=== PATIENT | male | born 1990 | race American Indian/Alaskan Native ===

== ENCOUNTER 2017-03-26 04:21 | Emergency (ER) | payer SELFPAY ==
[2017-03-26 05:27] LABS: Basophils % (Auto) 0.5 % (0.0-1.8); Eosinophils % (Auto) 1.7 % (0.0-4.3); Hematocrit 45.7 % (35.5-45.6); Hemoglobin 15.5 gm/dl (11.8-15.2); Mean Corpuscular HGB Conc 34 % (32-34); Mean Corpuscular Hemoglobin 30 pg (28-32); Mean Corpuscular Volume 89 fl (84-94); Platelet Count 247 K/mm3 (140-440); Red Blood Count 5.12 M/mm3 (3.65-5.03); Red Cell Distribution Width 13.2 % (13.2-15.2); White Blood Count 15.8 K/mm3 (4.5-11.0)
[2017-03-26 05:49] LABS: Alanine Aminotransferase 24 units/L (7-56); Albumin 4.8 g/dL (3.9-5); Albumin/Globulin Ratio 1.7 %; Alkaline Phosphatase 52 units/L (35-129); Anion Gap 25 mmol/L; Blood Urea Nitrogen 15 mg/dL (9-20); Calcium 9.4 mg/dL (8.4-10.2); Carbon Dioxide 20 mmol/L (22-30); Chloride 98.6 mmol/L (98-107); Glucose 176 mg/dL (75-100); Lipase 11 units/L (13-60); Potassium 3.8 mmol/L (3.6-5.0); Sodium 140 mmol/L (137-145); Total Protein 7.7 g/dL (6.3-8.2)
[2017-03-26] MEDS ORDERED: SUBLIMAZE IV ONE (07:44)
[2017-03-26] MEDS ORDERED: ZOFRAN IV ONE (07:44)
[2017-03-26] MEDS ORDERED: TORADOL IV ONE (07:45)
[2017-03-26] MEDS ORDERED: NACL 0.9% 1000 ML 1,000 ML IV ONE (07:45)
--- NOTE | 2017-03-26 07:50 | Emergency Department Report ---
HPI - General Chief Complaint: Abdominal Pain Time Seen by Provider: 03/26/17 07:41 - HPI HPI: Room 6 The patient is a 27-year-old male presenting with a chief complaint of left flank pain. The patient states his pain began suddenly this morning with pain in the left flank and left lower quadrant. Patient describes pain as constant in nature. Patient does admit to nausea vomiting. Patient denies dysuria or hematuria. Location: Left flank Duration: Constant since this morning Quality: Pain Severity: 04/04 Modifying factors: [see above] Context: [see above] Mode of transportation: EMS ED Past Medical Hx - Past Medical History Previous Medical History?: No Additional medical history: CROHN'S - Surgical History Past Surgical History?: No - Family History Family history: no significant - Social History Smoking Status: Never Smoker Substance Use Type: None (denies illicit drug use) - Medications Home Medications: Home Medications Medication Instructions Recorded Confirmed Last Taken Type Metoclopramide [Reglan] 10 mg PO TID PRN #10 tab 05/20/16 Unknown Rx Famotidine [Pepcid] 20 mg PO BID #20 tablet 03/26/17 Unknown Rx Promethazine [Phenergan TAB] 25 mg PO Q6HR PRN #20 tab 03/26/17 Unknown Rx Promethazine [Phenergan] 25 mg [place] Q6HR PRN #5 supp.rect 03/26/17 Unknown Rx traMADol [Ultram] 50 mg PO Q6HR PRN #14 tablet 03/26/17 Unknown Rx ED Review of Systems ROS: Stated complaint: VOMITING Other details as noted in HPI Comment: All other systems reviewed and negative Constitutional: denies: chills, fever Eyes: denies: eye pain, eye discharge, vision change ENT: denies: ear pain, throat pain Respiratory: denies: cough, shortness of breath, wheezing Cardiovascular: denies: chest pain, palpitations Endocrine: no symptoms reported Gastrointestinal: abdominal pain, nausea, vomiting Genitourinary: denies: urgency, dysuria Musculoskeletal: back pain Skin: denies: rash, lesions Neurological: denies: headache, weakness, paresthesias Psychiatric: denies: anxiety, depression Hematological/Lymphatic: denies: easy bleeding, easy bruising Physical Exam - Physical Exam Vital Signs: Vital Signs 03/26/17 03/26/17 03/26/17 04:37 05:05 06:02 Temperature 97.4 F L 97.4 F L 98 F Pulse Rate 84 78 68 Respiratory 19 100 H 18 Rate Blood Pressure 112/78 112/78 Blood Pressure 125/91 [Left] O2 Sat by Pulse 97 100 Oximetry Physical Exam: GENERAL: The patient is well-developed well-nourished male writhing around on the stretcher appearing to be in moderate discomfort HEENT: Normocephalic. Atraumatic. Extraocular motions are intact. NECK: Supple. Trachea midline CHEST/LUNGS: Clear to auscultation. There is no respiratory distress noted. HEART/CARDIOVASCULAR: Regular. There is no tachycardia. There is no gallop rub or murmur. ABDOMEN: Abdomen is soft, mild discomfort to palpation left lower quadrant. Patient has normal bowel sounds. There is no abdominal distention. SKIN: There is no rash. There is no edema. There is no diaphoresis. NEURO: The patient is awake, alert, and oriented. The patient is cooperative. The patient has normal speech MUSCULOSKELETAL: There is no evidence of acute injury. ED Course Vital Signs 03/26/17 03/26/17 03/26/17 04:37 05:05 06:02 Temperature 97.4 F L 97.4 F L 98 F Pulse Rate 84 78 68 Respiratory 19 100 H 18 Rate Blood Pressure 112/78 112/78 Blood Pressure 125/91 [Left] O2 Sat by Pulse 97 100 Oximetry ED Medical Decision Making - Lab Data Result diagrams: 03/26/17 05:16 03/26/17 05:16 Laboratory Tests 03/26/17 03/26/17 03/26/17 05:16 05:16 09:05 WBC 15.8 H RBC 5.12 H Hgb 15.5 H Hct 45.7 H MCV 89 MCH 30 MCHC 34 RDW 13.2 Plt Count 247 Lymph % (Auto) 7.1 L [place] % (Auto) 8.0 H Eos % (Auto) 1.7 Baso % (Auto) 0.5 Lymph # 1.1 L [place] # 1.3 H Eos # 0.3 Baso # 0.1 Seg Neutrophils % 82.7 H Seg Neutrophils # 13.1 H Sodium 140 Potassium 3.8 Chloride 98.6 Carbon Dioxide 20 L Anion Gap 25 BUN 15 Creatinine 1.2 Estimated GFR > 60 BUN/Creatinine Ratio 12.50 Glucose 176 H Calcium 9.4 Total Bilirubin 1.30 H AST 33 ALT 24 Alkaline Phosphatase 52 Total Protein 7.7 Albumin 4.8 Albumin/Globulin Ratio 1.7 Lipase 11 L Urine Color Yellow Urine Turbidity Clear Urine pH 7.0 Ur Specific [place] 1.044 H Urine Protein 100 mg/dl Urine Glucose (UA) 50 Urine Ketones 20 Urine Blood Sm Urine Nitrite Neg Urine Bilirubin Neg Urine Urobilinogen < 2.0 Ur Leukocyte Esterase Neg Urine WBC (Auto) 1.0 Urine RBC (Auto) 2.0 U Epithel Cells (Auto) < 1.0 - Radiology Data Radiology results: report reviewed (CT abdomen and pelvis), image reviewed (CT abdomen and pelvis) CT abdomen and pelvis (read by radiologist) (-no CT evident acute abdominal pelvic pathology - Differential Diagnosis renal colic, Crohn's disease, diverticulitis, gastritis Critical care attestation.: If time is entered above; I have spent that time in minutes in the direct care of this critically ill patient, excluding procedure time. ED Disposition Clinical Impression: Acute abdominal pain, Nausea & vomiting Disposition: TO HOME OR SELFCARE Is pt being admited?: No Does the pt Need Aspirin: No Condition: Stable Instructions: Acute Abdominal Pain (ED), Acute Nausea and Vomiting (ED) Additional Instructions: Return to the emergency department immediately should you develop worsening symptoms, fever, inability to tolerate food or liquid or any other concerns. Prescriptions: Famotidine [Pepcid] 20 mg PO BID #20 tablet Promethazine [Phenergan TAB] 25 mg PO Q6HR PRN #20 tab PRN Reason: Nausea Promethazine [Phenergan] 25 mg [place] Q6HR PRN #5 supp.rect PRN Reason: Vomiting traMADol [Ultram] 50 mg PO Q6HR PRN #14 tablet PRN Reason: Pain Referrals: PRIMARY CARE, [Primary Care Provider] - 3-5 Days YANNICK FELIPE MD [Staff Physician] - 3-5 Days (Dr. Felipe is a cupola charger. Please follow up with him for further evaluation) Time of Disposition: 10:02
[2017-03-26] MEDS ORDERED: NACL ONE (07:59)
--- NOTE | 2017-03-26 08:37 | Cat Scan Report ---
FINAL REPORT PROCEDURE: CT ABDOMEN PELVIS WO/W CON TECHNIQUE: Consent was obtained. Axial sections were viewed through the abdomen and pelvis before and after administration of IV contrast. Delayed postcontrast images as well as coronal and sagittal reformatted images were also submitted for review. HISTORY: left flank/left lower quadrant abdominal pain COMPARISON: Contrast-enhanced CT of the abdomen and pelvis 07/07/2015 FINDINGS: The lung bases are clear. There is no focal abnormality seen of the liver, spleen, pancreas, gallbladder, adrenal glands, kidneys, urinary bladder, or prostate. There is no abdominal aortic aneurysm or dissection. Lack of oral contrast limits evaluation of the bowel. There is no bowel obstruction or gross focal bowel abnormality. The appendix is not definitely seen. There is no inflammatory mass to suggest appendicitis. There is no free fluid or lymphadenopathy. There is no acute osseous abnormality. IMPRESSION: No CT evident acute abdominal/pelvic pathology.
[2017-03-26 09:27] LABS: Bilirubin,Urine NEG (Negative); Blood,Urine SM (Negative); Ketones,Urine 20 mg/dL (Negative); Leukocyte Esterase,Urine NEG (Negative); Nitrite,Urine NEG (Negative); Urobilinogen,Urine < 2.0 mg/dL (<2.0)
[2017-03-26 11:29] VITALS: BP 105/43
== END 2017-03-26 10:41 | disposition home or self-care (01) ==
LOC: ED 04:21
DX: R10.32 Left lower quadrant pain (principal); R11.2 Nausea with vomiting, unspecified
CPT/HCPCS: 36415; 74178; 80053; 81001; 83690; 85025; 96361; 96374; 96375; 99284; J1885; J2405; J3010; J7030; Q9967

== ENCOUNTER 2017-05-26 12:43 | Emergency (ER) | payer OTHER ==
[2017-05-26 13:17] LABS: Basophils % (Auto) 0.8 % (0.0-1.8); Eosinophils % (Auto) 1.6 % (0.0-4.3); Hematocrit 45.8 % (35.5-45.6); Mean Corpuscular HGB Conc 33 % (32-34); Mean Corpuscular Hemoglobin 29 pg (28-32); Mean Corpuscular Volume 90 fl (84-94); Platelet Count 252 K/mm3 (140-440); Red Cell Distribution Width 13.4 % (13.2-15.2)
[2017-05-26 13:35] LABS: Alanine Aminotransferase 20 units/L (7-56); Albumin 4.8 g/dL (3.9-5); Albumin/Globulin Ratio 1.8 %; Alkaline Phosphatase 53 units/L (35-129); Anion Gap 25 mmol/L; BUN/Creatinine Ratio 14; Blood Urea Nitrogen 13 mg/dL (9-20); Calcium 9.6 mg/dL (8.4-10.2); Carbon Dioxide 21 mmol/L (22-30); Chloride 101.3 mmol/L (98-107); Glucose 133 mg/dL (75-100); Sodium 143 mmol/L (137-145); Total Protein 7.4 g/dL (6.3-8.2)
--- NOTE | 2017-05-26 14:58 | Emergency Department Report ---
ED Abdominal Pain HPI - General Chief Complaint: Pain General Stated Complaint: VOMITING BLOOD, ABDOMINAL PAIN, DIARRHEA Time Seen by Provider: 05/26/17 14:57 Source: patient Mode of arrival: Ambulatory Limitations: No Limitations - History of Present Illness Initial Comments: here reports that he is having in generalized pain and weakness and chills. He reports that he had some blood in his vomit 1 yesterday. But studies not chest and he is having some abdominal pain to his left lower abdomen. He said pain is 8 out of 10 and it's cramp in. Nothing makes it better and nothing makes it worse. Patient was here on 03/26/2017 and seen by Diogo and diagnosed with nausea and vomiting , acute abdominal pain and he was told to return to the hospital if he has worsening symptoms. Patient said that his symptoms returned last night. Patient was referred to supervisor dyer Dr. Felipe on 03/26/2017 and he did not follow-up. He is also placed on Pepcid, promethazine and tramadol to manage his pain. He had CT scan which did not show any acute abnormalities on 03/26/2017. She denies any diarrhea. He denies any blood in his stool. He denies any chest pain, shortness of breath or difficulty breathing. MD Complaint: abdominal pain Onset/Timin -: days(s) Location: [facility] Radiation: none Migration to: no migration Severity: severe Severity scale (0 -10): 8 Quality: cramping Consistency: intermittent Improves With: nothing Worsens With: nothing Context: other ( has Crohn's disease) Associated Symptoms: nausea, vomiting, chills, hematemesis. denies: diarrhea, fever, constipation, dysuria, hematochezia, melena, hematuria, anorexia, syncope Treatments Prior to Arrival: antacids - Related Data Previous Rx's Medication Instructions Recorded Last Taken Type Metoclopramide [Reglan] 10 mg PO TID PRN #10 tab 05/20/16 Unknown Rx Famotidine [Pepcid] 20 mg PO BID #20 tablet 03/26/17 Unknown Rx Promethazine [Phenergan] 25 mg [place] Q6HR PRN #5 supp.rect 03/26/17 Unknown Rx Promethazine [Phenergan TAB] 25 mg PO Q6HR PRN 5 Days #20 tab 12/01/17 Unknown Rx Ranitidine HCl [Zantac 150 MG TAB] 150 mg PO Q12H 30 Days #60 tablet 05/26/17 Unknown Rx traMADol [Ultram 50 MG tab] 50 mg PO Q6HR PRN 3 Days #12 tablet 05/26/17 Unknown Rx Allergies Allergy/AdvReac Type Severity Reaction Status Date / Time hydrocodone AdvReac Swelling Verified 03/26/17 09:35 ED Review of Systems ROS: Stated complaint: VOMITING BLOOD, ABDOMINAL PAIN, DIARRHEA Other details as noted in HPI Comment: All other systems reviewed and negative Constitutional: chills ENT: denies: throat pain Respiratory: no symptoms reported Cardiovascular: denies: chest pain, palpitations, dyspnea on exertion, orthopnea , edema, syncope Gastrointestinal: abdominal pain, nausea, vomiting, hematemesis. denies: diarrhea, constipation, melena, hematochezia Genitourinary: denies: urgency, dysuria, frequency, hematuria, discharge, testicular pain, other Skin: denies: rash Neurological: denies: headache, abnormal gait, vertigo ED Past Medical Hx - Past Medical History Previous Medical History?: Yes Additional medical history: CROHN'S - Surgical History Past Surgical History?: No - Family History Family history: no significant - Social History Smoking Status: Never Smoker Substance Use Type: None - Medications Home Medications: Home Medications Medication Instructions Recorded Confirmed Last Taken Type Metoclopramide [Reglan] 10 mg PO TID PRN #10 tab 05/20/16 Unknown Rx Famotidine [Pepcid] 20 mg PO BID #20 tablet 03/26/17 Unknown Rx Promethazine [Phenergan] 25 mg [place] Q6HR PRN #5 supp.rect 03/26/17 Unknown Rx Promethazine [Phenergan TAB] 25 mg PO Q6HR PRN 5 Days #20 tab 05/26/17 Unknown Rx Ranitidine HCl [Zantac 150 MG TAB] 150 mg PO Q12H 30 Days #60 tablet 05/26/17 Unknown Rx traMADol [Ultram 50 MG tab] 50 mg PO Q6HR PRN 3 Days #12 tablet 05/26/17 Unknown Rx ED Physical Exam - General Limitations: No Limitations General appearance: alert, in no apparent distress - Head Head exam: Present: atraumatic, normocephalic, normal inspection - Eye Eye exam: Present: normal appearance, PERRL, EOMI. Absent: periorbital swelling , periorbital tenderness Pupils: Present: normal accommodation - ENT ENT exam: Present: normal exam, normal orophraynx, mucous membranes moist, TM's normal bilaterally, normal external ear exam - Neck Neck exam: Present: normal inspection. Absent: tenderness, meningismus, full ROM, lymphadenopathy, thyromegaly - Respiratory Respiratory exam: Present: normal lung sounds bilaterally. Absent: respiratory distress, chest wall tenderness - Cardiovascular Cardiovascular Exam: Present: regular rate, normal rhythm, normal heart sounds. Absent: systolic murmur, diastolic murmur - GI/Abdominal GI/Abdominal exam: Present: soft, normal bowel sounds. Absent: distended, tenderness, guarding, rebound, rigid, diminished bowel sounds, hyperactive bowel sounds, hypoactive bowel sounds, organomegaly, mass, bruit, pulsatile mass , hernia - Extremities Exam Extremities exam: Present: normal inspection, full ROM, normal capillary refill , other (No clubbing, cyanosis or edema to extremities. +2 pulses in all extremities. Neurovascular compromise). Absent: tenderness, pedal edema, joint swelling, calf tenderness - Back Exam Back exam: Present: normal inspection, full ROM, other ( able to ambulate without any difficulties). Absent: tenderness, CVA tenderness (R), CVA tenderness (L), muscle spasm, paraspinal tenderness, vertebral tenderness, rash noted - Neurological Exam Neurological exam: Present: alert, oriented X3, normal gait - Psychiatric Psychiatric exam: Present: normal affect, normal mood - Skin Skin exam: Present: warm, dry, intact, normal color. Absent: rash ED Course Vital Signs 05/26/17 05/26/17 12:58 18:45 Temperature 97.5 F L 98.1 F Pulse Rate 68 86 Respiratory 16 18 Rate Blood Pressure 139/64 Blood Pressure 131/83 [Left] O2 Sat by Pulse 100 99 Oximetry - Reevaluation(s) Reevaluation #1: 05/26/17 17:30 Patient given Zofran 8 mg IV, IV fluids 1 L infusing and morphine 4 mg IV in emergency room for abdominal pain. He is awaiting CT scan of abdomen and pelvis with IV contrast. No change in abdominal assessment. Reevaluation #2: 05/26/17 19:36 Patient was still complaining that she was having pain to his abdomen and I gave him [place] 7.5/325 2 tablets by mouth. He was also given additional 4 mg Zofran by mouth and now he says he feel better. CT scan of the abdomen and pelvis did not show any acute findings. Patient has a history of Crohn's disease and he did not have any episode of vomiting in emergency room he complain of nausea but reports that he vomited yesterday and had some blood in the vomit. No changes in abdominal exam. Reevaluation #3: 05/26/17 21:44 No changes in abdominal exam. Patient reports he feels better ED Medical Decision Making - Lab Data Result diagrams: 05/26/17 13:03 05/26/17 13:03 Lab Results 05/26/17 05/26/17 05/26/17 Range/Units 13:03 13:03 18:27 WBC 13.0 H (4.5-11.0) K/mm3 RBC 5.10 H (3.65-5.03) M/mm3 Hgb 15.0 (11.8-15.2) gm/dl Hct 45.8 H (35.5-45.6) % MCV 90 (84-94) fl MCH 29 (28-32) pg MCHC 33 (32-34) % RDW 13.4 (13.2-15.2) % Plt Count 252 (140-440) K/mm3 Lymph % (Auto) 21.2 (13.4-35.0) % [place] % (Auto) 4.1 (0.0-7.3) % Eos % (Auto) 1.6 (0.0-4.3) % Baso % (Auto) 0.8 (0.0-1.8) % Lymph # 2.8 (1.2-5.4) K/mm3 [place] # 0.5 (0.0-0.8) K/mm3 Eos # 0.2 (0.0-0.4) K/mm3 Baso # 0.1 (0.0-0.1) K/mm3 Seg Neutrophils % 72.3 H (40.0-70.0) % Seg Neutrophils # 9.4 H (1.8-7.7) K/mm3 Sodium 143 (137-145) mmol/L Potassium 4.0 (3.6-5.0) mmol/L Chloride 101.3 (98-107) mmol/L Carbon Dioxide 21 L (22-30) mmol/L Anion Gap 25 mmol/L BUN 13 (9-20) mg/dL Creatinine 0.9 (0.8-1.5) mg/dL Estimated GFR > 60 ml/min BUN/Creatinine Ratio 14 % Glucose 133 H (75-100) mg/dL Calcium 9.6 (8.4-10.2) mg/dL Total Bilirubin 0.50 (0.1-1.2) mg/dL AST 25 (5-40) units/L ALT 20 (7-56) units/L Alkaline Phosphatase 53 (35-129) units/L Total Protein 7.4 (6.3-8.2) g/dL Albumin 4.8 (3.9-5) g/dL Albumin/Globulin Ratio 1.8 % Urine Color Yellow (Yellow) Urine Turbidity Clear (Clear) Urine pH 7.0 (5.0-7.0) Ur Specific [place] 1.053 H (1.003-1.030) Urine Protein <15 mg/dl (Negative) mg/dL Urine Glucose (UA) Neg (Negative) mg/dL Urine Ketones Tr (Negative) mg/dL Urine Blood Neg (Negative) Urine Nitrite Neg (Negative) Urine Bilirubin Neg (Negative) Urine Urobilinogen < 2.0 (<2.0) mg/dL Ur Leukocyte Esterase Neg (Negative) Urine WBC (Auto) 2.0 (0.0-6.0) /HPF Urine RBC (Auto) 1.0 (0.0-6.0) /HPF Urine Mucus Few /HPF - Radiology Data Radiology results: report reviewed CT scan of abdomen and pelvis reveal there is very little peritoneal fat which limits patient and contrast resolution. Patient has no definite etiological etiology for clinical symptoms identified. Lobe. Peritoneal fat with which limits assessment for the bowel including the appendix. Patient with distended gallbladder but no gallbladder wall thickening. Questionable trace free fluid. No free air. Mesenteric vessels are patent. No arthrosclerotic occlusive disease. Bowel pattern is nonobstructive. Urinary bladder moderately distended. There is a normal excretion of contrast on the delayed phase images. - Medical Decision Making ED course: She is here complaining of abdominal pain to his left lower quadrant since yesterday with small amount of blood in vomitus is one episode.. Seen here on 2016 for similar symptoms and was treated and diagnosed with acute abdominal pain and acute nausea and vomiting and he was discharged home with prescription for Ultram and Phenergan, Pepcid and to follow up with supervisor dyer which she did not follow-up with. She and his back with the same complaint and he was given 1 L of normal saline and is able to tolerate oral liquids well. Patient was given Zofran a total of 12 mg. He was given 8 mg of Zofran with 4 mg of morphine via IV initially and still complaining of pain upon reassessment and he was given [place] 7.5/325 mg 2 tablets by mouth with a friend 4 mg IV. Discussed this case with Dr. Reyes. had labs done on 03/26/2017 and he had elevated white count. Today's laboratory mild elevated white count, chemistry is stable and his urinalysis is stable except he has trace ketone and he received a liter normal saline which was resolved dehydration. Patient abdominal exam was normal. Patient's that he has a history of Crohn's. CT scan did not show any acute findings. Patient with acute nausea and vomiting and reported hemoptysis 1 and acute abdominal pain. I discussed the patient that he will need to follow-up with supervisor dyer as previously recommended on 03/26/2017 by emergency room physician. I discussed patient is lab results and CT scan results along with diagnosis, treatment and follow-up plan and he voiced understanding. Patient discharged home to increase his fluid intake, prescription for Phenergan number Ultram and Zantac. He is in stable condition. Critical care attestation.: If time is entered above; I have spent that time in minutes in the direct care of this critically ill patient, excluding procedure time. ED Disposition Clinical Impression: Abdominal pain Qualifiers: Abdominal location: lower abdomen, unspecified Qualified Code(s): R10.30 - Lower abdominal pain, unspecified Nausea & vomiting Qualifiers: Vomiting type: unspecified Vomiting Intractability: non-intractable Qualified Code(s): R11.2 - Nausea with vomiting, unspecified Disposition: DC-01 TO HOME OR SELFCARE Is pt being admited?: No Does the pt Need Aspirin: No Condition: Stable Instructions: Abdominal Pain (ED), Acute Nausea and Vomiting (ED) Additional Instructions: Increase your fluid intake Follow up with Senior [employer] Consultant on 05/29/2017 Do not drink alcohol If symptoms return,develop fever, diarrhea and unable to tolerate fluids plese return to emergency room Prescriptions: Promethazine [Phenergan TAB] 25 mg PO Q6HR PRN 5 Days #20 tab PRN Reason: Nausea Ranitidine HCl [Zantac 150 MG TAB] 150 mg PO Q12H 30 Days #60 tablet traMADol [Ultram 50 MG tab] 50 mg PO Q6HR PRN 3 Days #12 tablet PRN Reason: Pain Referrals: PRIMARY CARE, [Primary Care Provider] - 05/29/17 [facility] [Provider Group] - 05/29/17 [facility] [Outside] - 05/29/17 Forms: Work/School Release Form(ED), Accompanied Note
[2017-05-26] MEDS ORDERED: MORPHINE IV ONE (16:13)
[2017-05-26] MEDS ORDERED: ZOFRAN IV ONE ×2 (16:13→18:39)
[2017-05-26] MEDS ORDERED: TORADOL IV ONE (16:13)
[2017-05-26] MEDS ORDERED: NACL 0.9% 1000 ML 1,000 ML IV ONE (16:13)
--- NOTE | 2017-05-26 18:19 | Cat Scan Report ---
FINAL REPORT EXAM: CT ABDOMEN PELVIS W CON HISTORY: abdominal pain with nausea and vomiting TECHNIQUE: Axial images were performed from the lung bases to the pubic symphysis following nonionic IV contrast administration. Multiplanar reformats are performed on the acquisition scanner. Total exam DLP 1472.70 mGy-cm FINDINGS: Clear lung bases. Normal enhancement and appearance of the liver, spleen, pancreas, bilateral adrenal glands, and bilateral kidneys. Gallbladder is distended. There is no wall thickening identified. Mesenteric vessels are patent. The portal vein and its branches and hepatic veins are patent. There is no significant atherosclerotic occlusive disease. Bowel pattern is nonobstructive. Urinary bladder is moderately distended. There is questionable trace free fluid. There is very little peritoneal fat which limits spatial and contrast resolution. The appendix is not identified. There is normal excretion of contrast on the delayed phase images. IMPRESSION: No definite etiology for clinical symptoms identified. Little peritoneal fat which limits assessment for the bowel including the appendix. No definite bowel obstruction. Distended gallbladder. No gallbladder wall thickening. Questionable trace free fluid. No free air. Bowel peristalsis causes star artifact. If there is a question of bowel pathology, recommend dilute oral contrast administration and rescan.
[2017-05-26] MEDS ORDERED: NORCO 7.5/325 PO ONE (18:32)
[2017-05-26] MEDS ORDERED: NORCO 7.5/325 ONE (18:35)
[2017-05-26] MEDS ORDERED: ZOFRAN ONE (18:42)
[2017-05-26 18:46] VITALS: BP 131/83
[2017-05-26 19:01] LABS: Bilirubin,Urine NEG (Negative); Blood,Urine NEG (Negative); Ketones,Urine TR mg/dL (Negative); Leukocyte Esterase,Urine NEG (Negative); Mucus,Urine FEW /HPF; Nitrite,Urine NEG (Negative); Protein,Urine <15 mg/dL mg/dL (Negative); Urobilinogen,Urine < 2.0 mg/dL (<2.0)
== END 2017-05-26 22:00 | disposition home or self-care (01) ==
LOC: ED 12:43
DX: R10.32 Left lower quadrant pain (principal); R11.2 Nausea with vomiting, unspecified; K50.90 Crohn's disease, unspecified, without complications; Z88.8 Allergy status to other drugs, medicaments and biological substances
CPT/HCPCS: 36415; 74177; 80053; 81001; 85025; 87086; 87400; 96361; 96374; 96375; 96376; 99284; J1885; J2270; J2405; J7030; Q9967